=== PATIENT | female | born 2005 | race Caucasian/White ===

== ENCOUNTER 2024-01-16 04:17 | Emergency (ER) | payer BC | END 2024-01-16 04:44 | disposition home or self-care (01) | LOC: CSHERS 04:17 | DX: S61.214A Laceration without foreign body of right ring finger without damage to nail, initial encounter (principal); F17.290 Nicotine dependence, other tobacco product, uncomplicated; W25.XXXA Contact with sharp glass, initial encounter | CPT/HCPCS: 99282 ==